=== PATIENT | female | born 1985 | race Caucasian/White ===

== ENCOUNTER 2017-02-04 10:57 | Emergency (ER) | payer OTHER ==
[~2017-02-04] VITALS: Ht 167.6 cm; Wt 100.7 kg
[2017-02-04 14:04] VITALS: BP 95/66
[2017-02-05 07:48] LABS: RAPID PLASMA REAGIN Non Reactive (Non Reactive)
== END 2017-02-04 14:04 | disposition home or self-care (01) ==
LOC: ED 10:57
PROVIDERS: Emergency Medicine
DX: R10.2 Pelvic and perineal pain (principal); N93.9 Abnormal uterine and vaginal bleeding, unspecified; J45.909 Unspecified asthma, uncomplicated
CPT/HCPCS: 36415; 87491; 87591; J0696; J1885

== ENCOUNTER 2017-07-31 21:35 | Emergency (ER) | payer OTHER ==
[2017-07-31 23:42] LABS: microscopic required? NO
[2017-07-31 23:43] LABS: BASOPHIL % 0.3 % (0-2); PLATELET COUNT 253 x10^3mcL (130-400); RED CELL DISTRIBUTION WIDTH 12.8 % (11.5-14.5)
[2017-07-31 23:51] LABS: CALCIUM 8.8 mg/dL (8.5-10.1); CARBON DIOXIDE 30.7 mmol/L (21-32); CHLORIDE SERUM 106 mmol/L (98-107); CREATININE SERUM 0.7 mg/dL (0.6-1.0); GFR1 > 60 mL/min; GLUCOSE SERUM 95 mg/dL (74-106); POTASSIUM SERUM 3.5 mmol/L (3.5-5.1); SODIUM SERUM 141 mmol/L (136-145)
[2017-07-31 23:56] LABS: ALBUMIN 3.3 g/dL (3.4-5.0); ALKALINE PHOSPHATASE 62 U/L (46-116); ALT/SGPT 30 U/L (14-59); AST/SGOT 17 U/L (15-37); BILIRUBIN TOTAL 0.2 mg/dL (0.20-1.00); LIPASE 273 IU/L (73-393); TOTAL PROTEIN, SERUM 7.4 g/dL (6.4-8.2)
[2017-08-01 00:15] LABS: UA SPECIFIC GRAVITY 1.025 (1.005-1.035); urine erythrocyte NEGATIVE (NEGATIVE)
[2017-08-01 00:33] VITALS: BP 109/71
== END 2017-08-01 00:33 | disposition home or self-care (01) ==
LOC: ED 21:35
PROVIDERS: Emergency Medicine
DX: K29.70 Gastritis, unspecified, without bleeding (principal); R42 Dizziness and giddiness; J45.909 Unspecified asthma, uncomplicated; Z90.49 Acquired absence of other specified parts of digestive tract
CPT/HCPCS: 36415; Q0162

== ENCOUNTER 2017-11-05 19:02 | Emergency (ER) | payer OTHER ==
[~2017-11-05] VITALS: Ht 165.1 cm; Wt 98.4 kg
[2017-11-05 19:32] VITALS: Ht 165.1 cm; Wt 98.4 kg
[2017-11-05 22:52] VITALS: BP 114/80
== END 2017-11-05 22:52 | disposition home or self-care (01) ==
LOC: ED 19:02
DX: J06.9 Acute upper respiratory infection, unspecified (principal); J45.909 Unspecified asthma, uncomplicated
CPT/HCPCS: J8597

== ENCOUNTER 2017-12-17 15:08 | Emergency (ER) | payer OTHER ==
[~2017-12-17] VITALS: Ht 167.6 cm; Wt 102.0 kg
[2017-12-17 15:25] VITALS: Ht 167.6 cm; Wt 102.0 kg
[2017-12-17 16:21] LABS: microscopic required? NO
[2017-12-17 16:40] LABS: BASOPHIL % 0.4 % (0-2); PLATELET COUNT 248 x10^3mcL (130-400); RED CELL DISTRIBUTION WIDTH 14.2 % (11.5-14.5)
[2017-12-17 16:40] LABS: urine erythrocyte NEGATIVE (NEGATIVE)
[2017-12-17 17:23] VITALS: BP 107/75
== END 2017-12-17 17:23 | disposition home or self-care (01) ==
LOC: ED 15:08
PROVIDERS: Emergency Medicine
DX: O26.891 Other specified pregnancy related conditions, first trimester (principal); R10.30 Lower abdominal pain, unspecified; R35.0 Frequency of micturition; Z3A.00 Weeks of gestation of pregnancy not specified
CPT/HCPCS: 36415; Q0162

== ENCOUNTER 2018-01-01 17:00 | Emergency (ER) | payer OTHER ==
[~2018-01-01] VITALS: Ht 167.6 cm; Wt 110.2 kg
[2018-01-01 18:18] LABS: BASOPHIL % 0.4 % (0-2); PLATELET COUNT 263 x10^3mcL (130-400); RED CELL DISTRIBUTION WIDTH 14.1 % (11.5-14.5)
[2018-01-01 18:19] LABS: CALCIUM 8.5 mg/dL (8.5-10.1); CARBON DIOXIDE 26.6 mmol/L (21-32); CHLORIDE SERUM 106 mmol/L (98-107); CREATININE SERUM 0.6 mg/dL (0.6-1.0); GFR1 > 60 mL/min; GLUCOSE SERUM 103 mg/dL (74-106); POTASSIUM SERUM 3.3 mmol/L (3.5-5.1); SODIUM SERUM 141 mmol/L (136-145)
[2018-01-01 18:24] LABS: ALKALINE PHOSPHATASE 73 U/L (46-116); ALT/SGPT 26 U/L (14-59); AST/SGOT 15 U/L (15-37); BILIRUBIN TOTAL 0.2 mg/dL (0.20-1.00); LIPASE 229 IU/L (73-393); TOTAL PROTEIN, SERUM 7.1 g/dL (6.4-8.2)
[2018-01-01 18:26] LABS: ALBUMIN 3.2 g/dL (3.4-5.0)
[2018-01-01 18:31] VITALS: BP 106/63
== END 2018-01-01 19:01 | disposition home or self-care (01) ==
LOC: ED 17:00
PROVIDERS: Emergency Medicine
DX: O26.891 Other specified pregnancy related conditions, first trimester (principal); R10.30 Lower abdominal pain, unspecified; J45.909 Unspecified asthma, uncomplicated; Z90.89 Acquired absence of other organs; R51 Headache; Z3A.08 8 weeks gestation of pregnancy
CPT/HCPCS: 36415